=== PATIENT | male | born 1980 | race Caucasian/White ===

== ENCOUNTER 2023-02-17 11:21 | Emergency (ER) | payer OTHER, MEDICAID, SELFPAY ==
[2023-02-17 11:25] VITALS: BP 130/77; PULSE 65; RESP 20; TEMP 36.9; O2SAT 100; BMI 24.0
[2023-02-17 13:07] LABS: UR Morphine/Opiate cutoff 300 Negative (Negative); Ur Creatinine Normal (Normal); Ur Specific Gravity Normal (Normal); Urine Amphetamines Negative (Negative); Urine Barbiturates Negative (Negative); Urine Benzodiazepines Negative (Negative); Urine Cocaine Negative (Negative); Urine MDMA Negative (Negative); Urine Methadone Negative (Negative); Urine Methamphetamines Negative (Negative); Urine Oxycodone Negative (Negative); Urine Phencyclidine Negative (Negative); Urine Tetrahydrocannabinol Negative (Negative); Urine Tricyclic Antidepressant Negative (Negative); Urine pH Normal (Normal)
--- NOTE | 2023-02-17 13:37 | CM.SWNOTE ---
ED IN SERVICE COORDINATOR Assessment IN SERVICE COORDINATOR - Manager Purchasing Assessment IN SERVICE COORDINATOR/Manager Purchasing Assessment Time Spent with Patient Start date 02/17/23 Visit Start Time 12:40 End date 02/17/23 Visit End Time 12:55 Total time Care Management spent on 20 minutes patient visit-in minutes Mental Health Screening Include Onset, Duration, Intensity Presenting Problem Patient presents to ED via [facility] co responder Social workers due to concern for patient's mental health and increasing SI in the last few months with thoughts of plan. Patient denies current SI at the hospital but patient is seeking voluntary inpatient hospitalization. Patient is not currently on any rx. Precipitating Event(s) Patient endorses he has been clean from substances for the last few months. Patient also states he has been having increasing hallucination that make him angry. Patient Strengths Patient has supports from worship, friends and family. Patient is connected with [facility] outpatient providers Current Behavioral Health Provider(s) Patient sees provider and Include Facility, Provider, Ph. # SUDP provider at [facility] in [place] (ph. # [phone]) SUDP provider is Denisha Velazquez (Ph. # [phone]), patient' s next appt is Wednesday02/19/23. Patient gives consent for IN SERVICE COORDINATOR to contact [facility], IN SERVICE COORDINATOR discusses patient's presentation to ED and states that he is voluntarily seeking inpatient and will miss appt. IN SERVICE COORDINATOR speaks with FEDERICO Denny, she recommends voluntary inpatient hospitalization for patient and has noticed increase in SI in the last few weeks. Psych. Hx Mental Health and Chemical It is reported patient has hx Dependency of ADHD, MDD, and Anxiety. patient is not currently on any rx. Patient endorses hx of suboxone for about four years but states he is no longer taking it. Patient endorses recent marijuana use in November 2022, patient denies any current substances. SWs report hx of patient's Methamphetamine use and ETOH use. Patient endorses he has been sober since September 2022. SWs report patient has a hx of rx for Benzodiazapines and there is a concern for patient being prescribed this due to patient's hx of substance use. Family Hx of Behavioral Abuse None reported Psychiatric Hospitalizations (date(s)/ Patient endorses hx of two location) hospitalizations at [place] in 2009. Psychosocial information & Support Patient is 42 y/o male who is Systems currently homeless in [facility]. Patient states he stayed at the [place] [facility] last night. Patient endorses worship members, friends and family as supports. School/Work Unemployed Legal Concerns Legal Matters - Outstanding Issues None reported Mental Status Orientation (Person/Place/Time) A/Ox4 Stated Mood ok Affect (Congruent with Mood?) flat, congruent with mood, slow to respond Thought Content - Specify/Describe Patient endorses in the last Obsessions, Delusions, Hallucinations couple months he has been experiencing hallucinations that are spiritual in nature. Patient endorses it feels like an evil entity. Patient endorses that he hears bad stuff and further explains that it is derogatory and perverted. Patient endorses that these hallucinations make him angry and some are less sinister than others. Patient endorses going to worship helps and they usually stop when he is at worship and with fellow Christians. Patient also states that sometimes hallucinations get worse when he reads the bible but at times they get better. Patient endorses he has an overactive mind that won't quiet down. Thought Processes (Cpstvmv-Akqwdwhc-Pdvi detailed/coherent Ynukdfeh-Cpxxhono-Eukxhahsug- Lxtgkoudawhnlj-Sjxwywn-Uzigkabknvjh- Thought Blocking) Speech (Bhkzvz-Svgr-Qambqmp-Rapid-Soft- soft,slow to respond, Loud-Pressured) thoughtful responses. Motor (Nzsurv-Ponryfnhg-Jywn-Other) normal Insight (Zybg-Lgnn-Qqit/Limited) fair Judgement (Dqxu-Eudk-Qwiy/Limited) fair Impulse Control (Adequate-Impaired) adequate Memory (Xvmgwblkl-Uddixr-Mnqclv, intact, not formally assessed Impaired-Intact) Concentration (Intact-Impaired) intact Attention (Intact-Impaired) intact Behavior (Appropriate-Inappropriate) appropriate Additional Comment Patient presents as calm, communicative and cooperative. Risk Assessment Suicidal Ideation (Plan) Yes Homicidal Ideation (Plan) No Comment Patient denies HI. Patient denies current SI and he feels safe at the hospital. Patient endorses for the last few months he has been experiencing increasing SI with thoughts of plan. Patient endorses he has had the ongoing and increasing thought of getting a gun and going [place] to [place] himself, patient states if he had a gun he would kill himself. It is reported that patient does not have a gun at this time. Patient endorses hx of risky behavior and substance use that he believes felt like a suicide attempt because of his depression. Intervention Intervention IN SERVICE COORDINATOR meets with [facility] that brought patient to ED . They report that patient has been quiet and withdrawn and struggling with his mental health. Patient has had ongoing on/off SI with thoughts of plan to use gun. It is reported that they brought patient here because he is voluntary for inpatient hospitalization. It is reported that patient has hx of substance use, dx of MDD , ADHD and Anxiety, no current rx.Patient has had hx of racing thoughts and often isolates himself. It is also reported that patient is connected with [facility]. IN SERVICE COORDINATOR enters room to meet with patient. Patient endorses concern for his MH, SI with plan and hallucinations. Patient endorses if he had a gun he would go [place] the [place] and kill himself. Patient denies current SI and feels safe in hospital. Patient endorses he is voluntary for inpatient hospitalization. With patient permission, IN SERVICE COORDINATOR calls [facility] provider who also recommends inpatient hospitalization and reports patient's recent increase in SI, it is reported patient is not on any rx. It is the opinion of this IN SERVICE COORDINATOR that patient is appropriate for and will benefit from voluntary inpatient hospitalization for safety, medication management and crisis stabilization. IN SERVICE COORDINATOR reviews the above with ED provider Dr. Chaney who indicates agreement and understanding. Plan RA Plan IN SERVICE COORDINATOR to seek inpatient bed for patient upon medical clearance. STEPHEN Avila, CLIENT DEVELOPMENT DIRECTOR
[2023-02-17 13:39] LABS: COVID19 -Nasal RAPID Negative (Negative)
[2023-02-17 13:40] LABS: Add Manual Diff / Slide Review NO; Basophils Absolute Auto 0 /uL (0-100); Basophils Percent Auto 0.4 % (0-2); Eosinophils Absolute Auto 100 /uL (0-450); Eosinophils Percent Auto 2.3 % (2-4); Hematocrit 40.6 % (41-53); Lymphocytes Absolute Auto 1900 /uL (1100-4500); Lymphocytes Percent Auto 31.1 % (25-40); Mean Corpuscular HGB Conc 34.4 % (30-36); Mean Corpuscular Hemoglobin 29.8 PG (26-34); Mean Corpuscular Volume 86.4 fL (80-100); Monocytes Absolute Auto 400 /uL (0-900); Monocytes Percent Auto 6.1 % (3-14); Neutrophils Absolute Auto 3700 /uL (1500-7000); Neutrophils Percent Auto 60.1 % (50-75); Platelet Count 279 X10^3/uL (150-400); Red Cell Distribution Width 14.9 % (11.6-14.8); White Blood Cell Count 6.1 X10^3/uL (4.5-11.0)
[2023-02-17 13:48] LABS: Acetaminophen < 10 ug/mL (10-30); Alanine Aminotransferase 41 IU/L (<50); Albumin 4.2 g/dL (3.5-5.0); Albumin Globulin Ratio 1.5 (1.0-2.8); Alkaline Phosphatase 71 U/L (38-126); BUN Creatinine Ratio 18.3 (6-22); Bilirubin Total 0.8 mg/dL (0.2-1.3); Blood Urea Nitrogen 13 mg/dL (9-20); Calcium 10.6 mg/dL (8.4-10.2); Carbon Dioxide 28 mmol/L (22-32); Chloride 103 mmol/L (98-107); Estimated Glomerular Filt Rate > 60 mL/min (>60); Ethanol (ETOH) < 10 mg/dL; Globulin 2.8 g/dL (1.7-4.1); Glucose 86 mg/dL (70-100); HEMOLYSIS < 15 (0-50); Potassium 4.5 mmol/L (3.4-5.1); Salicylate < 1.0 mg/dL (<20); Sodium 136 mmol/L (137-145)
--- NOTE | 2023-02-17 14:00 | PC.NURSE ---
Pt standing in his room reading from a book out loud.
[2023-02-17 14:22] LABS: Thyroid Stimulating Hormone 0.474 uIU/mL (0.47-4.68)
--- NOTE | 2023-02-17 14:39 | PC.NURSE ---
Patient laying on bed on his side with his ball cap on. Pt is denying currently wanting to hurt himself. He states I dont know what I need. Pt refuses food, blankets, or other needs. He denies hallucinations or hearing voices, but states Something is not right. I asked him to expand on his statement and pt repeats somethings not right. Pt states he is willing to seek inpatient psych.
--- NOTE | 2023-02-17 14:47 | PC.NURSE ---
Pt laying down in his left side, states he is trying to rest. Pt informed to call if he needs anything.
--- NOTE | 2023-02-17 14:51 | ED.PSYCH ---
HPI - Psych General Chief Complaint: Psychiatric Symptoms Stated Complaint: MENTAL HEALTH EVALUATION Time Seen by Provider: 02/17/23 12:32 Source: patient Mode of arrival: Ambulatory History of Present Illness HPI Narrative: Patient is a 42-year-old male who arrives by private vehicle for mental health evaluation. He states he was asked to come to the emergency department by ?friends? because they were concerned about him. He states that for quite some time he has had the sensation/presence of a ?demon? he states he has not seeing anything. Does not hear anything but just since his the presence. He points to his abdomen when he tells us this. He states that he has punched himself in the head in order to try to hurt himself. This was not recent. He denies any drugs or alcohol. He is very vague and somewhat reluctant to answer questions. He was here voluntarily stating that he would like to be admitted for the sensations that he has been having. He does see a mental health provider. Does not take any medications but does have a diagnosis of depression/anxiety and ADD. Related Data Allergies Allergy/AdvReac Type Severity Reaction Status Date / Time cefaclor [From [facility]] Allergy Severe Unverified 05/26/17 12:56 Review of Systems Constitutional Constitutional: Reports system reviewed and no additional complaints, except as documented Cardiovascular Cardiovascular: Reports system reviewed and no additional complaints, except as documented Respiratory Respiratory: Reports system reviewed and no additional complaints, except as documented Integumentary/Breasts Skin/Breast: Reports system reviewed and no additional complaints, except as documented Neurologic Neurologic: Reports system reviewed and no additional complaints, except as documented Psychiatric Psychiatric: Reports system reviewed and no additional complaints, except as documented Patient History Social History Smoking Status: Former smoker Smoking Status: Former smoker alcohol intake frequency: 0-2 drinks per day Alcohol type: hard liquor Substance Use Type: heroin Exam Initial Vital Signs Initial Vital Signs: Vital Signs Temperature 98.5 F 02/17/23 11:25 Pulse Rate 65 02/17/23 11:25 Respiratory Rate 20 02/17/23 11:25 Blood Pressure 130/77 02/17/23 11:25 Pulse Oximetry 100 02/17/23 11:25 Oxygen Delivery Method Room Air 02/17/23 11:25 Const General: cooperative, comfortable and No ill appearing [facility] Head: normal to inspection and normocephalic Resp Effort & Inspection: normal respiratory effort Cardio Rate: regular rate Skin General: no rashes or lesions noted Neuro General: patient alert, patient awake and moves all extremities Psych Other: Patient states he is ?always? suicidal. No homicidal ideation. Is very flat affect and reluctant to answer questions but is cooperative. Patient is voluntary. Course Orders Ordered: ED Orders 02/17/23 11:36 Consult to COMBAT SYSTEMS ENGINEER - Linux Systems Administrator Stat 02/17/23 12:30 Acetaminophen Stat Complete Blood Count AUTO DIFF Stat Comprehensive Metabolic Panel Stat Ethanol (ETOH) Stat Free T4, Direct Thyroxine Stat Salicylate Stat Thyroid Stimulating Hormone Stat 02/17/23 12:40 Urine Drug Screen, Rapid Stat 02/17/23 13:00 COVID19 -Nasal RAPID Stat Discontinued Medications Olanzapine (Olanzapine Odt 10 Mg Tab) 10 mg PO NOW ONE Stop: 02/17/23 16:19 Last Admin: 02/17/23 16:21 Dose: 10 mg Documented By: AMV Vital Signs Vital signs: Vital Signs - 8 hr 02/17/23 11:25 Temperature 98.5 F Pulse Rate 65 Respiratory Rate 20 Blood Pressure 130/77 Pulse Oximetry 100 Oxygen Delivery Method Room Air MDM - Psych Lab Data Attestation: I reviewed the patient's lab results. 02/17/23 12:30 02/17/23 12:30 Labs: Lab Results 02/17/23 02/17/23 02/17/23 Range/Units 12:30 12:40 13:00 WBC 6.1 (4.5-11.0) X10^3/uL RBC 4.70 (4.5-5.9) X10^6/uL Hgb 14.0 (13.5-17.5) g/dL Hct 40.6 L (41-53) % MCV 86.4 (80-100) fL MCH 29.8 (26-34) PG MCHC 34.4 (30-36) % RDW 14.9 H (11.6-14.8) % Plt Count 279 (150-400) X10^3/uL Neut % (Auto) 60.1 (50-75) % Lymph % (Auto) 31.1 (25-40) % [place] % (Auto) 6.1 (3-14) % Eos % (Auto) 2.3 (2-4) % Baso % (Auto) 0.4 (0-2) % Neut # (Auto) 3700 (9561-8965) /uL Lymph # (Auto) 1900 (3756-5131) /uL [place] # (Auto) 400 (0-900) /uL Eos # (Auto) 100 (0-450) /uL Baso # (Auto) 0 (0-100) /uL Sodium 136 L (137-145) mmol/L Potassium 4.5 (3.4-5.1) mmol/L Chloride 103 (98-107) mmol/L Carbon Dioxide 28 (22-32) mmol/L BUN 13 (9-20) mg/dL Creatinine 0.71 (0.66-1.25) mg/dL Estimated GFR > 60 (>60) mL/min BUN/Creatinine Ratio 18.3 (6-22) Glucose 86 (70-100) mg/dL Calcium 10.6 H (8.4-10.2) mg/dL Total Bilirubin 0.8 (0.2-1.3) mg/dL AST TNP ALT 41 (<50) IU/L Alkaline Phosphatase 71 (38-126) U/L Total Protein 7.0 (6.3-8.2) g/dL Albumin 4.2 (3.5-5.0) g/dL Globulin 2.8 (1.7-4.1) g/dL Albumin/Globulin Ratio 1.5 (1.0-2.8) TSH 0.474 (0.47-4.68) uIU/mL Free T4 0.90 (0.78-2.19) ng/dL Salicylates < 1.0 (<20) mg/dL U Opiates 300ng/mL cut Negative (Negative) Ur Oxycodone Screen Negative (Negative) Urine Methadone Screen Negative (Negative) Acetaminophen < 10 (10-30) ug/mL Ur Barbiturates Screen Negative (Negative) U Tricyclic Antidepress Negative (Negative) Ur Phencyclidine Scrn Negative (Negative) Ur Amphetamines Screen Negative (Negative) U Methamphetamines Scrn Negative (Negative) Ur MDMA Scrn (Ecstasy) Negative (Negative) U Benzodiazepines Scrn Negative (Negative) Urine Cocaine Screen Negative (Negative) U Marijuana (THC) Screen Negative (Negative) Urine pH Normal (Normal) Urine Specific [place] Normal (Normal) Ethyl Alcohol < 10 ( - 10) mg/dL Ur Creatinine Normal (Normal) SARS-CoV-2 (PCR) Negative (Negative) Urine Dip Bedside Urine Glucose Negative Bedside Urine Bilirubin - Negative Bedside Urine Ketone - Negative Urine Specific [place] 1.010 Bedside Urine Occult Blood - Negative Bedside Urine pH 6.0 Bedside Urine Protein - Negative Bedside Urine Urobilinogen - Negative Bedside Urine Nitrite - Negative Bedside Urine Leukocytes - Negative Esterase MDM Narrative Medical decision making narrative: Patient is medically cleared. His voluntary. Has been seen by social work. Not clinically intoxicated. GCS of 15. We will work on trying to find placement. Patient remains medically cleared. Has been seen by social work. Is accepted to [facility]. Patient is voluntary. Is stable for transport. Discharge Plan Departure Patient Disposition: Xfer Psychiatric Hosp Clinical Impression: Hallucinations
--- NOTE | 2023-02-17 15:49 | PC.NURSE ---
Pt was informed that [facility] accepted. Pt states i really don't like institutions but I guess I don't have much choice, okay
[2023-02-17] MEDS: OLANZapine ODT 10 MG TAB PO (16:21)
--- NOTE | 2023-02-17 16:34 | CM.SWNOTE ---
ED BRANCH OPERATIONS SPECIALIST Note BRANCH OPERATIONS SPECIALIST calls [facility], it is reported they may have beds later today or tomorrow, BRANCH OPERATIONS SPECIALIST faxes clincals for review. BRANCH OPERATIONS SPECIALIST calls [facility], it is reported that they have beds and can review patient. BRANCH OPERATIONS SPECIALIST faxes clinicals for review. ED team takes a call from [facility] and it is reported that patient is accepted for this evening by Rex REYES. ED team sets up transport for [id number] this evening. ED team endorses patient is presenting with apprehension about transfer to [facility], this BRANCH OPERATIONS SPECIALIST and SUPERVISOR BLOOD speak with patient about his questions and concerns in theraputic manner. Patient agrees to transfer, and would like to speak with yuan before transfer. ED provider prescribes zyprexa for patient as patient endorsed he was experiencing some hallucinations and internal stimuli. Patient endorses SI and states he wants to and would like if someone took me out of my misery. Patient endorses that his television production assistant recommends he seek treatment, this BRANCH OPERATIONS SPECIALIST states that [facility] and [facility] services recommend this as well. BRANCH OPERATIONS SPECIALIST speaks with [facility] Services SW Madeline Rodriguez regarding patient and patient's acceptance at [facility]. She reports she will inform his team at [facility]. Plan: patient to transfer to [facility] this evening via EMS for voluntary inpatient hospitalization. JUNIOR Avila
[2023-02-17 17:53] VITALS: BP 142/79; PULSE 62; RESP 18; TEMP 36.7; O2SAT 100
[2023-02-19 16:05] LABS: Aspartate Aminotransferase 39 IU/L (17-59)
== END 2023-02-17 18:28 ==
PROVIDERS: Emergency Provider Emergency Medicine
DX: R44.3 Hallucinations, unspecified (principal); Z20.822 Contact with and (suspected) exposure to COVID-19
CPT/HCPCS: 36415; 80053; 80305; 80320; 80329; 81003; 84439; 84443; 85025; 87635; 99284; C9803; G0480

== ENCOUNTER 2023-05-27 07:53 | Emergency (ER) | payer OTHER, MEDICAID, SELFPAY ==
--- NOTE | 2023-05-27 07:58 | ED_ITS ---
HPI - General Adult General Chief complaint: Allergic Reaction Stated complaint: hives, swelling in eyes, allergic reaction Time Seen by Provider: 05/27/23 07:58 Source: patient, RN notes reviewed and old records reviewed Mode of arrival: Ambulatory Limitations: no limitations History of Present Illness HPI narrative: 42 Year old male presents with complaint redness, swelling and hives have been present for 2 days. Patient states he thinks it might started along with some food poisoning from mushrooms. He states the mushrooms for from a [employer]. He states they were the grocery store but they also were mushrooms that he just found. He states that they were food and not hallucination headache mushrooms. Patient states about 5 or 6 hours after he ate them he started to have some abdominal pain he had nausea and and watery diarrhea for about 2 days. Patient states pain has resolved, he no longer has any nausea, states never had any vomiting. Diarrhea is resolved as well. Denies any urinary symptoms. He states about the same time he started getting redness, swelling and hives. He states they have not gone away. Patient states no swelling of his lips, tongue or airway. No tightness or shortness of breath. He took 4 tablets of Benadryl this morning at about 5:00 a.m. patient states he has had similar reaction in the past he thought to either yogurt or splint peas. He has not known allergy to cefaclor. Patient states he is currently on Suboxone, he was taking olanzapine and Wellbutrin until recently stopped these because he thought he was having some medication interactions. He would like to continue his medications, he does follow with a counselor. He is currently homeless. He denies any SI or HI, no hallucinations. Related Data Previous Rx's Medication Instructions Recorded prednisone 20 mg tablet 20 mg PO DAILY #3 tabs 05/27/23 Allergies Allergy/AdvReac Type Severity Reaction Status Date / Time cefaclor [From [facility]] Allergy Severe Hives Verified 05/27/23 08:42 Review of Systems Review of Systems ROS Unobtainable: All systems reviewed & are unremarkable except as noted in HPI and below Patient History Social History Smoking Status: Former smoker Smoking Status: Former smoker alcohol intake frequency: 0-2 drinks per day Alcohol type: hard liquor Substance Use Type: heroin Exam Narrative Exam Narrative: GEN: well nourished, well appearing male, alert and oriented x 3, patient appears to be in mild distress. HEENT: Atraumatic, pupils are equal round reactive to light, extraocular movements are intact, patient has some mild swelling bilateral upper eyes, nares are clear, TMs are clear with no fluid, there is no conjunctival pallor. Throat is clear without any exudates, erythema, tonsillar enlargement or uvular deviation HEART: Regular rate and rhythm without murmur, clicks, rubs. LUNGS:Lungs clear to auscultation, no wheezes, rales, crackles, chest moves symmetrically ABD:bowel sounds normal, soft, non-tender, no guarding, rebound, rigidity, no masses noted, no hepatosplenomegaly :No CVA tenderness MSCL: Full range of motion, normal gait NEURO:CN 2-12 intact, sensation normal SKIN: Generalized erythema, patient has some excoriation and hives on his posterior back. Patient has some mild swelling bilateral eyes none of the lips, tongue or oropharynx. Normal speech. Initial Vital Signs Initial Vital Signs: Vital Signs Temperature 98.5 F 05/27/23 08:04 Pulse Rate 99 H 05/27/23 08:04 Respiratory Rate 18 05/27/23 08:04 Blood Pressure 144/78 H 05/27/23 08:04 Pulse Oximetry 97 05/27/23 08:04 Oxygen Delivery Method Room Air 05/27/23 08:04 Course Orders Ordered: Discontinued Medications Famotidine (Famotidine 20 Mg/2 Ml Vial) 20 mg IV NOW KEVIN Last Admin: 05/27/23 08:51 Dose: 20 mg Documented By: ARLYN Sodium Chloride (Normal Saline 0.9%) 1,000 mls @ 1,000 mls/hr IV BOLUS ONE Stop: 05/27/23 09:13 Last Infusion: 05/27/23 09:39 Dose: Infused Documented By: Admin: 05/27/23 08:51 Dose: 1,000 mls/hr Documented By: ARLYN Methylprednisolone (Methylprednisolone 125 Mg/2 Ml Vial) 125 mg IV NOW ONE Stop: 05/27/23 08:16 Last Admin: 05/27/23 08:51 Dose: 125 mg Documented By: CTS Vital Signs Vital signs: Vital Signs - 8 hr 05/27/23 08:04 05/27/23 08:34 05/27/23 08:39 Temperature 98.5 F Pulse Rate 99 H Respiratory Rate 18 Blood Pressure 144/78 H 129/72 Pulse Oximetry 97 97 Oxygen Delivery Method Room Air 05/27/23 08:39 Temperature Pulse Rate 95 H Respiratory Rate Blood Pressure Pulse Oximetry 96 Oxygen Delivery Method Medical Decision Making Lab Data 05/27/23 08:40 05/27/23 08:40 Labs: Lab Results 05/27/23 Range/Units 08:40 WBC 8.0 (4.5-11.0) X10^3/uL RBC 4.43 L (4.5-5.9) X10^6/uL Hgb 12.8 L (13.5-17.5) g/dL Hct 36.9 L (41-53) % MCV 83.3 (80-100) fL MCH 28.9 (26-34) PG MCHC 34.7 (30-36) % RDW 14.0 (11.6-14.8) % Plt Count 342 (150-400) X10^3/uL Neut % (Auto) 79.0 H (50-75) % Lymph % (Auto) 7.0 L (25-40) % Davis % (Auto) 4.2 (3-14) % Eos % (Auto) 9.6 H (2-4) % Baso % (Auto) 0.2 (0-2) % Neut # (Auto) 6300 (4187-5146) /uL Lymph # (Auto) 600 L (5027-9422) /uL Davis # (Auto) 300 (0-900) /uL Eos # (Auto) 800 H (0-450) /uL Baso # (Auto) 0 (0-100) /uL PT 11.3 (9.4-12.5) SECONDS INR 1.0 (0.9-1.3) APTT 34 (25.1-36.5) SECONDS Sodium 134 L (137-145) mmol/L Potassium 4.1 (3.4-5.1) mmol/L Chloride 107 (98-107) mmol/L Carbon Dioxide 20 L (22-32) mmol/L BUN 22 H (9-20) mg/dL Creatinine 0.78 (0.66-1.25) mg/dL Estimated GFR > 60 (>60) mL/min BUN/Creatinine Ratio 28.2 H (6-22) Glucose 118 H (70-100) mg/dL Calcium 9.6 (8.4-10.2) mg/dL Total Bilirubin 0.5 (0.2-1.3) mg/dL AST 46 (17-59) IU/L ALT 38 (<50) IU/L Alkaline Phosphatase 68 (38-126) U/L Total Protein 6.5 (6.3-8.2) g/dL Albumin 3.7 (3.5-5.0) g/dL Globulin 2.8 (1.7-4.1) g/dL Albumin/Globulin Ratio 1.3 (1.0-2.8) Lipase 33 (23-300) U/L Ethyl Alcohol < 10 ( - 10) mg/dL MDM Narrative Medical decision making narrative: 42-year-old male with mental health history with report of possible reaction to mushrooms patient states he some that were older drive up and shriveled from a [employer] 3 days ago developed redness, swelling and hives as well as nausea, abdominal pain and watery diarrhea. Patient states GI symptoms have resolved. The redness swelling and hives have persisted. No anaphylaxis type symptoms no involvement of the airway, no chest tightness or shortness of breath. Patient did take some Benadryl at home about 3 hours prior to arrival. Unclear if mushroom true source but because of unclear source labs were obtained Hemoglobin is 12.8 slightly down from February 2023 but white count is 8 platelets are 342 slight leftward shift, INR and PTT are normal, BUN 22 with a sodium 134 potassium of 4 1 CO2 of 20, glucose of 118 normal renal function normal LFTs. ETOH is negative. Patient's GI symptoms have resolved and do not feel that he requires any other additional imaging. Patient received received Solu-Medrol as well as Pepcid. MEDICAL OFFICE TECHNICIAN consult was placed, patient has stopped his olanzapine and Wellbutrin in the past week, he felt like it was interacting with his methadone but he would like to continue to have some treatment. We discussed whether or not to try to restart these are continue to keep them off. He has counseling and follow up but would like reach out from [facility] for assistance in housing or half-way house. Patient has not seeking any inpatient placement and does not have any SI, HI or gravely disabled. Discharge Plan Departure Patient Disposition: Home Clinical Impression: Hives Instructions: DI for Hives Activity Restrictions/Additional Instructions: Follow up for recheck in the next week if your symptoms are not continuing to improve. I have asked her social work specialist to reach out to about resources, you can call here between the hours of 11 and 7:00 p.m. [phone] to ask to speak with a social work specialist. You can take Benadryl 1-2 tablets every 6 hours as needed for symptoms. You may take oral steroids 1 tablet daily for the next 3 days. Prescription sent to [facility] in [place]. Please return for fevers, new or worsening abdominal back flank pain, persistent vomiting, black or bloody stools, recurrent swelling or rash, swelling of the lips, tongue or airway or if you have other new or concerning symptoms Prescriptions: New prednisone 20 mg tablet 20 mg PO DAILY Qty: 3 0RF Stand Alone Forms: Patient Portal/API
[2023-05-27 08:04] VITALS: BP 144/78; PULSE 99; RESP 18; TEMP 36.9; O2SAT 97; BMI 25.5
[2023-05-27 08:34] VITALS: O2SAT 97
[2023-05-27 08:39] VITALS: BP 129/72; PULSE 95; O2SAT 96
[2023-05-27] MEDS: methylPREDNISolone 125 MG/2 ML VIAL IV (08:51)
[2023-05-27] MEDS: SODIUM CHLORIDE 0.9% 1,000 ML 1000 ML IV (08:51)
[2023-05-27] MEDS: FAMOTIDINE 20 MG/2 ML VIAL IV (08:51)
[2023-05-27 09:00] VITALS: BP 111/56; PULSE 80; RESP 18; O2SAT 95
[2023-05-27 09:00] LABS: Add Manual Diff / Slide Review NO; Basophils Absolute Auto 0 /uL (0-100); Basophils Percent Auto 0.2 % (0-2); Eosinophils Absolute Auto 800 /uL (0-450); Eosinophils Percent Auto 9.6 % (2-4); Hematocrit 36.9 % (41-53); Hemoglobin 12.8 g/dL (13.5-17.5); Lymphocytes Absolute Auto 600 /uL (1100-4500); Mean Corpuscular HGB Conc 34.7 % (30-36); Mean Corpuscular Hemoglobin 28.9 PG (26-34); Mean Corpuscular Volume 83.3 fL (80-100); Monocytes Absolute Auto 300 /uL (0-900); Monocytes Percent Auto 4.2 % (3-14); Neutrophils Absolute Auto 6300 /uL (1500-7000); Platelet Count 342 X10^3/uL (150-400); Red Blood Cell Count 4.43 X10^6/uL (4.5-5.9)
[2023-05-27 09:06] LABS: Prothrombin Time 11.3 SECONDS (9.4-12.5)
[2023-05-27 09:09] LABS: PTT Partial Thromboplastin Tim 34 SECONDS (25.1-36.5)
[2023-05-27 09:12] LABS: Alanine Aminotransferase 38 IU/L (<50); Albumin 3.7 g/dL (3.5-5.0); Albumin Globulin Ratio 1.3 (1.0-2.8); Alkaline Phosphatase 68 U/L (38-126); Aspartate Aminotransferase 46 IU/L (17-59); BUN Creatinine Ratio 28.2 (6-22); Bilirubin Total 0.5 mg/dL (0.2-1.3); Blood Urea Nitrogen 22 mg/dL (9-20); Calcium 9.6 mg/dL (8.4-10.2); Carbon Dioxide 20 mmol/L (22-32); Chloride 107 mmol/L (98-107); Estimated Glomerular Filt Rate > 60 mL/min (>60); Ethanol (ETOH) < 10 mg/dL; Globulin 2.8 g/dL (1.7-4.1); Glucose 118 mg/dL (70-100); HEMOLYSIS < 15 (0-50); Lipase 33 U/L (23-300); Potassium 4.1 mmol/L (3.4-5.1); Sodium 134 mmol/L (137-145); Total Protein 6.5 g/dL (6.3-8.2)
[2023-05-27 09:30] VITALS: BP 106/58; PULSE 80; O2SAT 95
[2023-05-27 09:37] VITALS: BP 106/58; PULSE 78; O2SAT 98
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
== END 2023-05-27 09:37 | disposition home or self-care (01) ==
PROVIDERS: Emergency Provider Emergency Medicine
DX: L50.9 Urticaria, unspecified (principal); T78.40XA Allergy, unspecified, initial encounter
CPT/HCPCS: 36415; 80053; 80320; 83690; 85025; 85610; 85730; 96361; 96374; 96375; 99284; J2919

== ENCOUNTER 2023-07-01 13:48 | Emergency (ER) | payer OTHER, MEDICAID, SELFPAY ==
[2023-07-01 13:59] VITALS: BP 116/56; PULSE 54; RESP 16; TEMP 36.6; O2SAT 99; BMI 25.1
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
[2023-07-01] MEDS: KETOROLAC 30 MG/ML VIAL 15 MG IM (14:21)
== END 2023-07-01 14:26 | disposition home or self-care (01) ==
PROVIDERS: Emergency Provider Physician Assistant Medical
DX: S29.012A Strain of muscle and tendon of back wall of thorax, initial encounter (principal); X58.XXXA Exposure to other specified factors, initial encounter
CPT/HCPCS: 96372; 99283; J1885

== ENCOUNTER 2024-05-23 12:16 | Emergency (ER) | payer MEDICAID, OTHER, SELFPAY ==
[2024-05-23 12:19] VITALS: BP 148/65; PULSE 86; RESP 18; TEMP 36.8; O2SAT 94; BMI 27.9
--- NOTE | 2024-05-23 12:37 | DI.CT.S_ITS ---
PROCEDURE: CT CERVICAL SPINE WO CON INDICATIONS: injury TECHNIQUE: Noncontrast 3 mm thick sections acquired from the skull base to the T4 level. Sagittal and coronal reformats were then constructed. For radiation dose reduction, the following was used: automated exposure control, adjustment of mA and/or kV according to patient size. COMPARISON: None. FINDINGS: Image quality: Excellent. Bones: No acute fractures or dislocations. Visualized superior ribs are intact. Soft tissues: Prevertebral soft tissues are normal in thickness. No paravertebral hematomas. No apical pneumothoraces. IMPRESSION: No acute displaced fracture or traumatic subluxation. Approved by: Navarro Feliciano M.D. on 05/23/2024 at 13:07
--- NOTE | 2024-05-23 12:37 | DI.CT.S_ITS ---
PROCEDURE: CT HEAD/BRAIN WO CON INDICATIONS: injury TECHNIQUE: Noncontrast 4.5 mm thick angled axial sections acquired from the foramen magnum to the vertex, with coronal and sagittal reformats. For radiation dose reduction, the following was used: automated exposure control, adjustment of mA and/or kV according to patient size. COMPARISON: None. FINDINGS: Image quality: Diagnostic. CSF spaces: Basal cisterns are patent. No extra-axial fluid collections. Ventricles are normal in size and shape. Brain: No midline shift. No intracranial masses or hemorrhage. Davis-white matter interface is normal. Skull and face: Calvarium and visualized facial bones are intact, without suspicious lesions. Sinuses: Visualized sinuses and mastoids are clear. IMPRESSION: No acute intracranial pathology. Approved by: Navarro Feliciano M.D. on 05/23/2024 at 13:06
--- NOTE | 2024-05-23 12:38 | DI.CT.S_ITS ---
PROCEDURE: CT CHEST ABD PEL WO CON INDICATIONS: injury TECHNIQUE: After the administration of oral contrast, 5 mm thick sections acquired from the lung apices to the symphysis pubis. 5 mm thick coronal and sagittal reformats acquired, with additional 7 mm coronal MIP reformats through the lungs. For radiation dose reduction, the following was used: automated exposure control, adjustment of mA and/or kV according to patient size. COMPARISON: [facility], CR, XR CHEST 2 VIEWS, 07/30/2023, 21:22. FINDINGS: Image quality: Diagnostic. CHEST: Lower Neck: No enlarged lymph nodes. Thyroid: No thyroid nodules which require sonographic follow up, per consensus guidelines. Axillae: No enlarged lymph nodes. Chest Wall: Unremarkable. Bones: Unremarkable. Lungs and Pleura: No pneumothorax or pleural effusions. No consolidation or suspicious nodules. Heart: Heart size is normal. No pericardial effusion. Thoracic Vessels: The aorta and pulmonary arteries demonstrate normal size. Mediastinum and Sultana: No enlarged lymph nodes. Small amount of presumed thymic tissue is seen in the anterior mediastinum without solid masslike appearance. Esophagus: No wall thickening. No hiatal hernia. ABDOMEN: Liver: No solid mass. Gallbladder: No radiopaque gallstones or wall thickening. Biliary ducts: No biliary dilation. Pancreas: No ductal dilation. Spleen: Size is within normal limits. Adrenal Glands: No adrenal nodules. Kidneys and Ureters: No hydronephrosis. No solid mass. No complex renal cystic lesion which requires follow up. Stomach and Bowel: Normal colonic caliber, without significant wall thickening. Moderate to large volume of stool in the colon. Small bowel loops are unremarkable. No intramural hematoma. Peritoneum: No abnormal intraperitoneal fluid. No free air. Ventral Wall: Small subcutaneous hematoma with surrounding edema in the left abdomen near the level of the umbilicus. Small fat containing periumbilical hernia. Abdominal Nodes: No retroperitoneal or mesenteric adenopathy by size criteria. Vessels: Aorta and inferior vena cava are normal in size. PELVIS: Pelvic Organs: Unremarkable. Bladder: Markedly distended urinary bladder to the level of the umbilicus.. Pelvic Nodes: No enlarged lymph nodes. Miscellaneous: Moderate fat containing right inguinal hernia. Bones: No aggressive osseous abnormality. IMPRESSION: 1. Small subcutaneous hematoma at the left anterior abdominal wall. No other acute traumatic findings in the chest, abdomen, or pelvis. 2. Distended urinary bladder. Approved by: Navarro Feliciano M.D. on 05/23/2024 at 13:15
[2024-05-23 12:39] VITALS: BP 121/74; PULSE 80; RESP 16; O2SAT 92
[2024-05-23 13:00] VITALS: BP 123/74; PULSE 86; RESP 13; TEMP 37.4; O2SAT 93
[2024-05-23 13:24] LABS: Add Manual Diff / Slide Review NO; Basophils Absolute Auto 0 /uL (0-100); Basophils Percent Auto 0.6 % (0-2); Eosinophils Absolute Auto 400 /uL (0-450); Eosinophils Percent Auto 6.2 % (2-4); Hematocrit 38.8 % (41-53); Hemoglobin 13.1 g/dL (13.5-17.5); Lymphocytes Absolute Auto 2100 /uL (1100-4500); Lymphocytes Percent Auto 29.9 % (25-40); Mean Corpuscular HGB Conc 33.9 % (30-36); Mean Corpuscular Hemoglobin 28.4 PG (26-34); Mean Corpuscular Volume 83.9 fL (80-100); Monocytes Absolute Auto 600 /uL (0-900); Monocytes Percent Auto 8.1 % (3-14); Neutrophils Absolute Auto 4000 /uL (1500-7000); Neutrophils Percent Auto 55.2 % (50-75); Platelet Count 270 X10^3/uL (150-400); Red Blood Cell Count 4.63 X10^6/uL (4.5-5.9); Red Cell Distribution Width 14.1 % (11.6-14.8); White Blood Cell Count 7.2 X10^3/uL (4.5-11.0)
[2024-05-23 13:33] LABS: INR 0.9 (0.9-1.3)
[2024-05-23 13:36] LABS: PTT Partial Thromboplastin Tim 32 SECONDS (25.1-36.5)
[2024-05-23 13:40] LABS: Alanine Aminotransferase 59 IU/L (<50); Albumin 4.1 g/dL (3.5-5.0); Albumin Globulin Ratio 1.5 (1.0-2.8); Alkaline Phosphatase 72 U/L (38-126); Aspartate Aminotransferase 59 IU/L (17-59); BUN Creatinine Ratio 20.9 (6-22); Bilirubin Total 0.6 mg/dL (0.2-1.3); Blood Urea Nitrogen 18 mg/dL (9-20); Calcium 10.7 mg/dL (8.4-10.2); Carbon Dioxide 24 mmol/L (22-32); Chloride 106 mmol/L (98-107); Estimated Glomerular Filt Rate > 60 mL/min (>60); Ethanol (ETOH) < 10 mg/dL; Globulin 2.8 g/dL (1.7-4.1); Glucose 115 mg/dL (70-100); HEMOLYSIS < 15 (0-50); Lactate (Lactic Acid) 0.6 mmol/L (0.7-2.1); Lipase 42 U/L (23-300); Potassium 4.1 mmol/L (3.4-5.1); Sodium 135 mmol/L (137-145); Total Protein 6.9 g/dL (6.3-8.2)
[2024-05-23 14:49] LABS: UR Morphine/Opiate cutoff 300 Negative (Negative); Ur Creatinine Normal (Normal); Ur Specific Gravity Normal (Normal); Urine Amphetamines Negative (Negative); Urine Barbiturates Negative (Negative); Urine Benzodiazepines Positive (Negative); Urine Cocaine Negative (Negative); Urine MDMA Negative (Negative); Urine Methadone Negative (Negative); Urine Methamphetamines Negative (Negative); Urine Oxycodone Negative (Negative); Urine Phencyclidine Negative (Negative); Urine Tetrahydrocannabinol Negative (Negative); Urine Tricyclic Antidepressant Negative (Negative); Urine pH Normal (Normal)
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
[2024-05-23] MEDS: TET,DIPH,PERTUSS(ACELL),VAC/PF 0.5 ML SYRINGE IM (16:02)
[2024-05-23 16:09] VITALS: BP 121/67; PULSE 87; RESP 20; O2SAT 95
== END 2024-05-23 16:34 | disposition home or self-care (01) ==
PROVIDERS: Emergency Provider Emergency Medicine
DX: S06.0X0A Concussion without loss of consciousness, initial encounter (principal); S30.1XXA Contusion of abdominal wall, initial encounter; R41.0 Disorientation, unspecified; R40.2412 Glasgow coma scale score 13-15, at arrival to emergency department; V19.9XXA Pedal cyclist (driver) (passenger) injured in unspecified traffic accident, initial encounter
CPT/HCPCS: 70450; 71250; 72125; 74176; 80053; 80305; 80320; 83605; 83690; 85025; 85610; 85730; 90471; 99284; 90715